=== PATIENT | male | born 1950 | race Caucasian/White ===

== ENCOUNTER 2020-04-18 16:19 | Inpatient (IN) ==
[2020-04-18] MEDS ORDERED: ALBUTEROL 2.5 MG/3 ML NEB RESP TX PRN (19:00)
[2020-04-18] MEDS ORDERED: AMIODARONE INJ 450 MG in DEXTROSE 5% 241 ML IV SCH ×2 (19:30→21:00)
[2020-04-18] MEDS ORDERED: ONDANSETRON 4 MG/2 ML VIAL IV PRN (20:00)
[2020-04-18] MEDS ORDERED: LACTATED RINGERS 1,000 ML IV SCH (21:00)
[2020-04-18] MEDS: ENOXAPARIN 40 MG/0.4 ML SYRINGE SUBCUT SCH (21:10)
[2020-04-19 05:31] LABS: Basophils % 0.6 % (0.0-0.8); Eosinophils # 0.2 10*3/uL (0.0-0.87); Hematocrit 37.7 VOL% (42.0-52.0); Immature Granulocytes % 0.6 %; Immature Granulocytes Absolute 0.04 #; Lymphocytes % 28.3 % (21.2-54.2); Mean Corpuscular HGB Conc 34.5 GM/DL (32-36); Mean Corpuscular Volume 92.6 FL (87-102); Mean Platelet Volume 11.4 FL (9.6-12.0); Monocytes % 9.7 % (1.7-12.7); Neutrophils % 57.8 % (38.7-73.9); Platelet Count 186 T/CUMM (130-400); Red Blood Count 4.07 MC/CUMM (3.8-5.5); Red Cell Distribution Width 13.2 % (9.3-17.3)
[2020-04-19 05:47] LABS: Albumin 3.4 G/DL (3.4-5.0); Bilirubin,Total 0.6 MG/DL (0.2-1.0); Calcium 8.9 MG/DL (8.5-10.1); Osmolality,Calculated 277.4 MOS/KG (273-304); Total Protein 6.9 G/DL (6.4-8.3)
[2020-04-19] MEDS: CLOPIDOGREL 75 MG TABLET PO SCH (08:28)
[2020-04-19] MEDS: SIMVASTATIN 20 MG TABLET PO SCH (08:28)
[2020-04-19] MEDS: ISOSORBIDE MONONITRATE 30 MG TABLET PO SCH (08:28)
[2020-04-19] MEDS: lisinopriL 5 MG TABLET PO SCH (08:28)
[2020-04-19] MEDS: PANTOPRAZOLE 40 MG TABLET PO SCH (08:28)
[2020-04-19 10:34] LABS: Troponin I 0.238 NG/ML (0.00-0.045)
[2020-04-19] MEDS ORDERED: ASPIRIN 325 MG TABLET PO SCH (10:46)
[2020-04-19] MEDS: ASPIRIN CHEW 81 MG TABLET PO SCH (11:15)
[2020-04-19] MEDS: AMIODARONE 200 MG TABLET PO SCH ×2 (11:16→21:12)
[2020-04-19] MEDS: METOPROLOL SUCCINATE XL 50 MG TABLET PO SCH (11:16)
[2020-04-19 14:00] LABS: Troponin I 0.228 NG/ML (0.00-0.045)
[2020-04-19 17:01] LABS: Troponin I 0.206 NG/ML (0.00-0.045)
[2020-04-19] MEDS: ENOXAPARIN 40 MG/0.4 ML SYRINGE SUBCUT SCH (21:10)
[2020-04-20 06:13] LABS: Basophils % 0.3 % (0.0-0.8); Eosinophils # 0.2 10*3/uL (0.0-0.87); Eosinophils % 2.4 % (0.00-10.9); Hematocrit 40.2 VOL% (42.0-52.0); Hemoglobin 13.7 GM/DL (14.0-18.0); Immature Granulocytes % 0.3 %; Immature Granulocytes Absolute 0.03 #; Lymphocytes # 1.7 10*3/uL (1.4-4.0); Lymphocytes % 18.4 % (21.2-54.2); Mean Corpuscular HGB Conc 34.1 GM/DL (32-36); Mean Corpuscular Volume 93.9 FL (87-102); Mean Platelet Volume 12.2 FL (9.6-12.0); Monocytes % 8.2 % (1.7-12.7); Neutrophils % 70.4 % (38.7-73.9); Platelet Count 104 T/CUMM (130-400); Red Blood Count 4.28 MC/CUMM (3.8-5.5); Red Cell Distribution Width 13.2 % (9.3-17.3); White Blood Count 9.4 T/CUMM (4-12)
[2020-04-20 06:40] LABS: Calcium 9.5 MG/DL (8.5-10.1); Osmolality,Calculated 276.5 MOS/KG (273-304)
[2020-04-20 06:41] LABS: Troponin I 0.125 NG/ML (0.00-0.045)
[2020-04-20] MEDS: METOPROLOL SUCCINATE XL 50 MG TABLET PO SCH (10:20)
[2020-04-20] MEDS: ASPIRIN CHEW 81 MG TABLET PO SCH (10:20)
[2020-04-20] MEDS: PANTOPRAZOLE 40 MG TABLET PO SCH (10:20)
[2020-04-20] MEDS: lisinopriL 5 MG TABLET PO SCH (10:20)
[2020-04-20] MEDS: AMIODARONE 200 MG TABLET PO SCH ×2 (10:21→21:18)
[2020-04-20] MEDS: CLOPIDOGREL 75 MG TABLET PO SCH (10:21)
[2020-04-20] MEDS: ISOSORBIDE MONONITRATE 30 MG TABLET PO SCH (10:25)
[2020-04-20 14:22] LABS: Risk Ratio 3.2
[2020-04-20] MEDS ORDERED: MAGNESIUM SULF RIDER 2 GM in PREMIX 1 EACH IV PRN (15:39)
[2020-04-20] MEDS ORDERED: POTASSIUM CHLORIDE RIDER 10 MEQ in PREMIX 1 EACH IV PRN (15:39)
[2020-04-20] MEDS: SIMVASTATIN 20 MG TABLET PO SCH (15:50)
[2020-04-20] MEDS ORDERED: MELATONIN 3 MG TABLET PO PRN (15:58)
[2020-04-20] MEDS: SODIUM CHLORIDE 0.45% 1,000 ML IV SCH (16:51)
[2020-04-20] MEDS: ENOXAPARIN 40 MG/0.4 ML SYRINGE SUBCUT SCH (21:11)
[2020-04-20] MEDS: GABAPENTIN 300 MG CAPSULE PO SCH (21:18)
[2020-04-21] MEDS: SODIUM CHLORIDE 0.45% 1,000 ML IV SCH ×3 (02:58→22:45)
[2020-04-21 05:50] LABS: Basophils % 0.4 % (0.0-0.8); Eosinophils # 0.3 10*3/uL (0.0-0.87); Eosinophils % 2.5 % (0.00-10.9); Hematocrit 40.2 VOL% (42.0-52.0); Hemoglobin 13.8 GM/DL (14.0-18.0); Immature Granulocytes % 0.6 %; Immature Granulocytes Absolute 0.06 #; Lymphocytes # 1.8 10*3/uL (1.4-4.0); Lymphocytes % 18.4 % (21.2-54.2); Mean Corpuscular HGB Conc 34.3 GM/DL (32-36); Mean Corpuscular Volume 93.1 FL (87-102); Mean Platelet Volume 11.2 FL (9.6-12.0); Monocytes % 8.9 % (1.7-12.7); Neutrophils % 69.2 % (38.7-73.9); Platelet Count 197 T/CUMM (130-400); Red Blood Count 4.32 MC/CUMM (3.8-5.5); White Blood Count 9.9 T/CUMM (4-12)
[2020-04-21 06:00] LABS: Calcium 9.1 MG/DL (8.5-10.1); Osmolality,Calculated 276.5 MOS/KG (273-304)
[2020-04-21 06:02] LABS: Calcium 8.7 MG/DL (8.5-10.1); Osmolality,Calculated 280.3 MOS/KG (273-304)
[2020-04-21] MEDS ORDERED: diphenhydrAMINE CAP 25 MG CAPSULE PO ONE (06:15)
[2020-04-21] MEDS ORDERED: DIAZEPAM 5 MG TABLET PO ONE (06:15)
[2020-04-21] MEDS ORDERED: HYDROmorphone 2 MG/1 ML VIAL ONE (06:58)
[2020-04-21] MEDS ORDERED: MIDAZOLAM 2 MG/2 ML VIAL ONE ×2 (06:58→10:49)
[2020-04-21] MEDS ORDERED: ceFAZolin 1,000 MG VIAL IRRIG ONE (08:33)
[2020-04-21] MEDS ORDERED: ceFAZolin 1,000 MG in SYRINGE 1 EACH IV ONE (08:33)
[2020-04-21] MEDS ORDERED: LIDOCAINE 1% 20 ML VIAL ONE (08:55)
[2020-04-21] MEDS ORDERED: ceFAZolin 1,000 MG VIAL ONE (08:55)
[2020-04-21] MEDS ORDERED: HEPARIN/NACL 0.9% 2 UNITS/ML 500 ML IV ONE (08:55)
[2020-04-21] MEDS: AMIODARONE 200 MG TABLET PO SCH ×2 (09:00→20:45)
[2020-04-21] MEDS ORDERED: TISSUE ADHESIVE 1 EACH APPLICATOR TOP ONE (10:12)
[2020-04-21] MEDS ORDERED: ACETAMINOPHEN 325 MG TABLET PO PRN (10:25)
[2020-04-21] MEDS ORDERED: SODIUM CHLORIDE 0.9% 100 ML IV ONE (10:49)
[2020-04-21] MEDS ORDERED: KETAMINE 500 MG/10 ML VIAL ONE (10:49)
[2020-04-21] MEDS: SIMVASTATIN 20 MG TABLET PO SCH (12:02)
[2020-04-21] MEDS: PANTOPRAZOLE 40 MG TABLET PO SCH (12:02)
[2020-04-21] MEDS: ASPIRIN CHEW 81 MG TABLET PO SCH (12:02)
[2020-04-21] MEDS: CLOPIDOGREL 75 MG TABLET PO SCH (12:02)
[2020-04-21] MEDS: ISOSORBIDE MONONITRATE 30 MG TABLET PO SCH (12:02)
[2020-04-21] MEDS: METOPROLOL SUCCINATE XL 50 MG TABLET PO SCH (12:02)
[2020-04-21] MEDS: lisinopriL 5 MG TABLET PO SCH (12:03)
[2020-04-21] MEDS: MORPHINE 4 MG/1 ML VIAL IV PRN (13:31)
[2020-04-21] MEDS ORDERED: hydrALAZINE 20 MG/1 ML VIAL IV PRN (13:39)
[2020-04-21] MEDS ORDERED: PHENOL 1.4% THROAT SPRAY 177 ML BOTTLE PO PRN (17:47)
[2020-04-21] MEDS: ENOXAPARIN 40 MG/0.4 ML SYRINGE SUBCUT SCH (20:44)
[2020-04-21] MEDS: GABAPENTIN 300 MG CAPSULE PO SCH (20:45)
[2020-04-22] MEDS: MORPHINE 4 MG/1 ML VIAL IV PRN (01:50)
[2020-04-22 07:24] LABS: Basophils % 0.2 % (0.0-0.8); Eosinophils # 0.2 10*3/uL (0.0-0.87); Eosinophils % 2.4 % (0.00-10.9); Hematocrit 39.9 VOL% (42.0-52.0); Hemoglobin 13.6 GM/DL (14.0-18.0); Immature Granulocytes % 0.4 %; Immature Granulocytes Absolute 0.04 #; Lymphocytes # 1.3 10*3/uL (1.4-4.0); Lymphocytes % 14.2 % (21.2-54.2); Mean Corpuscular HGB Conc 34.1 GM/DL (32-36); Neutrophils % 73.8 % (38.7-73.9); Platelet Count 164 T/CUMM (130-400); Red Blood Count 4.29 MC/CUMM (3.8-5.5); Red Cell Distribution Width 13.2 % (9.3-17.3); White Blood Count 9.1 T/CUMM (4-12)
[2020-04-22 07:44] LABS: Osmolality,Calculated 276.5 MOS/KG (273-304)
[2020-04-22] MEDS: lisinopriL 5 MG TABLET PO SCH (08:25)
[2020-04-22] MEDS: CLOPIDOGREL 75 MG TABLET PO SCH (08:26)
[2020-04-22] MEDS: PANTOPRAZOLE 40 MG TABLET PO SCH (08:26)
[2020-04-22] MEDS: SIMVASTATIN 20 MG TABLET PO SCH (08:26)
[2020-04-22] MEDS: METOPROLOL SUCCINATE XL 50 MG TABLET PO SCH (08:26)
[2020-04-22] MEDS: AMIODARONE 200 MG TABLET PO SCH (08:26)
[2020-04-22] MEDS: ISOSORBIDE MONONITRATE 30 MG TABLET PO SCH (08:26)
[2020-04-22] MEDS: ASPIRIN CHEW 81 MG TABLET PO SCH (08:27)
[2020-04-22] MEDS: SODIUM CHLORIDE 0.45% 1,000 ML IV SCH (09:35)
[2020-04-22 12:02] VITALS: BP 133/79
== END 2020-04-22 14:09 | disposition home or self-care (01) | DRG 224 ==
LOC: SUATTDRO 18:12 → N.ICU 18:12 → SUPCPDRO 18:12 → N.TELEN 04-19 15:11
PROVIDERS: ADMIT Internal Medicine; ATTEND Hospitalist
PROC: CLCCHCL (ICD-10-PCS; 2020-04-21 07:15)
PROC: CLDCICD (2020-04-21 11:45)